=== PATIENT | male | born 1995 | race Caucasian/White ===

== ENCOUNTER 2024-03-04 09:05 | Emergency (ER) | payer OTHER, SELFPAY ==
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
[2024-03-04 09:35] VITALS: BP 140/105; PULSE 82; RESP 16; TEMP 37; O2SAT 98
== END 2024-03-04 10:23 | disposition home or self-care (01) ==
PROVIDERS: Emergency Provider Emergency Medicine
DX: S49.91XA Unspecified injury of right shoulder and upper arm, initial encounter (principal); S89.91XA Unspecified injury of right lower leg, initial encounter; V44.5XXA Car driver injured in collision with heavy transport vehicle or bus in traffic accident, initial encounter
CPT/HCPCS: 73030; 73562; 99284